=== PATIENT | female | born 1995 | race Caucasian/White ===

== ENCOUNTER 2023-04-04 21:50 | Outpatient (CLI) | payer OTHER ==
[~2023-04-04] VITALS: Ht 165.1 cm; Wt 75.3 kg
[2023-04-04 22:08] VITALS: BP 133/65
== END 2023-04-04 23:45 | disposition home or self-care (01) ==
LOC: M LDO 21:50
PROVIDERS: ATTEND Obstetrics & Gynecology
DX: O99.893 Other specified diseases and conditions complicating puerperium (principal); N93.0 Postcoital and contact bleeding; Z3A.28 28 weeks gestation of pregnancy
CPT/HCPCS: 59025; 81001; 87086; G0463

== ENCOUNTER 2023-04-08 17:20 | Outpatient (CLI) | payer OTHER ==
[~2023-04-08] VITALS: Ht 165.1 cm; Wt 74.3 kg
[2023-04-08 17:34] VITALS: BP 140/74; O2SAT 99
[2023-04-08] MEDS ORDERED: PRENTAB9 PO (17:45)
[2023-04-08] MEDS ORDERED: ACET325C5 PO (17:45)
[2023-04-08] MEDS ORDERED: PEPC10TA6 PO (17:45)
[2023-04-08] MEDS ORDERED: UNIS25TA3 PO (17:45)
[2023-04-08] MEDS ORDERED: HOME MED LIST COMPLETE! XX SCH (17:50)
[2023-04-08] MEDS: FLUCONAZOLE 50MG TABLET PO ONE (18:56)
== END 2023-04-08 19:09 | disposition home or self-care (01) ==
LOC: M LDO 17:20
PROVIDERS: ATTEND Obstetrics & Gynecology
DX: O23.593 Infection of other part of genital tract in pregnancy, third trimester (principal); Z3A.29 29 weeks gestation of pregnancy
CPT/HCPCS: 59025; 76815; 87086; G0463

== ENCOUNTER 2023-05-26 19:57 | Outpatient (CLI) | payer OTHER ==
[~2023-05-26] VITALS: Ht 165.1 cm; Wt 81.1 kg
[~2023-05-26 19:57] MED LIST: ACET325C5 PO; PEPC10TA6 PO; PRENTAB9 PO; UNIS25TA3 PO
[2023-05-26 20:12] VITALS: BP 118/66
[2023-05-26] MEDS ORDERED: HOME MED LIST COMPLETE! XX SCH (20:25)
== END 2023-05-26 23:00 | disposition home or self-care (01) ==
LOC: M LDO 19:57
PROVIDERS: ATTEND Obstetrics & Gynecology
DX: O9A.213 Injury, poisoning and certain other consequences of external causes complicating pregnancy, third trimester (principal); S30.1XXA Contusion of abdominal wall, initial encounter; W01.0XXA Fall on same level from slipping, tripping and stumbling without subsequent striking against object, initial encounter; Y92.002 Bathroom of unspecified non-institutional (private) residence as the place of occurrence of the external cause; Y93.E1 Activity, personal bathing and showering
CPT/HCPCS: 59025; 76815; 87081; G0463